=== PATIENT | male | born 1940 | race Caucasian/White ===

== ENCOUNTER 2023-12-21 15:00 | Emergency (ER) | payer OTHER, BC ==
[2023-12-21 15:15] VITALS: BP 131/74; PULSE 66; RESP 18; TEMP 98.2; BMI 23.6
[2023-12-21 15:43] LABS: BASO % 0.9 % (0-2.0); EOS % 3.6 % (0-4.5); HEMATOCRIT 43.7 % (35.4-49); HEMOGLOBIN 14.4 GM/dL (11.7-16.9); LYMPH % 23.3 % (8-40); MCH 30.4 pg (25.7-33.7); MEAN CELL VOLUME 92.3 fl (80-96); MEAN PLT VOLUME 8.2 fl (7.5-11.1); MONO % 8.2 % (3.8-10.2); PLATELET COUNT 168 10^3/uL (134-434); RBC 4.74 M/mm3 (4.00-5.60); RDW 14.2 % (11.9-15.9)
[2023-12-21 15:50] LABS: INR 1.05 (0.83-1.09); PROTHROMBIN TIME (PATIENT) 12.2 SEC (9.7-13.0)
[2023-12-21 15:53] LABS: ACTIVATED PTT 31.5 SECONDS (25.2-36.5)
[2023-12-21 16:05] LABS: POTASSIUM 4.8 mmol/L (3.5-5.1)
[2023-12-21 16:07] LABS: CALCIUM 8.7 mg/dL (8.5-10.1)
[2023-12-21 16:08] LABS: BLOOD UREA NITROGEN 25.3 mg/dL (7-18)
[2023-12-21 16:11] LABS: CREATININE 1.1 mg/dL (0.55-1.3)
[2023-12-21 16:12] LABS: BILIRUBIN,TOTAL 0.6 mg/dL (0.2-1); TOT PROT 6.8 g/dl (6.4-8.2)
[2023-12-21 16:15] LABS: N-TERMINAL BNP 216.9 pg/ml (5-450)
== END 2023-12-21 19:56 | disposition home or self-care (01) ==
LOC: JER 15:00
DX: R07.89 Other chest pain (principal); R06.02 Shortness of breath
CPT/HCPCS: 36415; 71045-TC-FY; 80053; 83880; 84484; 85025; 85610; 85730; 93005; 93010; 99285-25

== ENCOUNTER 2025-03-28 15:14 | Observation (INO) | payer OTHER, BC ==
[2025-03-28] MEDS ORDERED: LISINOPRIL 20 MG TABLET ONE (15:57)
[2025-03-28 16:00] LABS: ABSOLUTE IMMATURE GRANULOCYTES 0.02 x10^3/uL (0.0-0.031); BASOPHILS # 0.07 x10^3/uL (0.01-0.08); EOSINOPHIL % 3.5 % (0.8-7.0); EOSINOPHILS # 0.25 x10^3/uL (0.04-0.54); MCHC 34.0 g/dl (32.3-36.5); MEAN CELL VOLUME 90.0 fl (79.0-92.2); MEAN PLT VOLUME 9.6 fl (9.4-12.4); MONOCYTE # 0.67 x10^3/uL (0.30-0.82); MONOCYTE % 9.3 % (5.3-12.2); RDW 12.9 % (12.6-16.6)
[2025-03-28] MEDS: LISINOPRIL 20 MG TABLET PO ONE (16:00)
[2025-03-28 16:22] LABS: URINE APPEARANCE CLEAR; URINE BILIRUBIN NEGATIVE (NEGATIVE); URINE COLOR YELLOW; URINE GLUCOSE (UA) NEGATIVE (NEGATIVE); URINE KETONE NEGATIVE (NEGATIVE); URINE LEUK ESTERASE NEGATIVE (NEGATIVE); URINE NITRITE NEGATIVE (NEGATIVE); URINE PROTEIN NEGATIVE (NEGATIVE); URINE UROBILINOGEN 0.2 mg/dL (0.2-1.0)
[2025-03-28 16:23] LABS: CO2 26.0 mmol/L (21-32); GLUCOSE,RANDOM 110.0 mg/dL (74-106)
[2025-03-28 16:26] LABS: CREATININE 0.8 mg/dL (0.55-1.3); SGOT/AST 27.0 U/L (15-37); SGPT/ALT 32.0 U/L (13-61)
[2025-03-28 16:28] LABS: TOT PROT 7.4 g/dl (6.4-8.2)
[2025-03-28 16:29] LABS: ALK PHOS 72.0 U/L (45-117)
[2025-03-28 16:51] LABS: CO2 28.0 mmol/L (21-32); GLUCOSE,RANDOM 112.0 mg/dL (74-106)
[2025-03-28 16:54] LABS: SGOT/AST 28.0 U/L (15-37); SGPT/ALT 32.0 U/L (13-61)
[2025-03-28 16:55] LABS: CREATININE 0.8 mg/dL (0.55-1.3)
[2025-03-28 16:56] LABS: TOT PROT 7.3 g/dl (6.4-8.2)
[2025-03-28 16:57] LABS: ALK PHOS 71.0 U/L (45-117)
[2025-03-28 17:23] LABS: HCV DIAGNOSTIC IN-HOUSE W/RFLX NON-REACTIVE (NONREACTIVE)
[2025-03-28 17:25] LABS: HIV INTERPRETATION NEGATIVE (NEGATIVE)
[2025-03-28 18:04] LABS: N-TERMINAL BNP 589.0 pg/ml (5-450)
[2025-03-28] MEDS ORDERED: HYDROCHLOROTHIAZIDE 12.5 MG CAPSULE (FP) PO ONE (18:14)
[2025-03-28] MEDS ORDERED: HYDROCHLOROTHIAZIDE 25 MG TABLET (FP) ONE (18:35)
[2025-03-28] MEDS: HYDROCHLOROTHIAZIDE 25 MG TABLET (FP) PO ONE (18:42)
[2025-03-28] MEDS ORDERED: CARVEDILOL 6.25 MG TABLET (FP) ONE (18:44)
[2025-03-28] MEDS: CARVEDILOL 6.25 MG TABLET (FP) PO ONE (18:45)
[2025-03-28] MEDS ORDERED: CARVEDILOL 6.25 MG TABLET (FP) PO SCH (20:00)
[2025-03-28 21:03] VITALS: BMI 26.6
[2025-03-28] MEDS: GABAPENTIN 300 MG CAPSULE PO SCH (21:32)
[2025-03-28 22:00] LABS: LDL CHOLESTEROL (ONLY SJRH) 135.0 mg/dL (5-100)
[2025-03-29 07:22] LABS: MCHC 33.5 g/dl (32.3-36.5); MEAN CELL VOLUME 90.3 fl (79.0-92.2); MEAN PLT VOLUME 9.8 fl (9.4-12.4); RDW 13.1 % (12.6-16.6)
[2025-03-29 07:50] LABS: SGPT/ALT 25.0 U/L (13-61)
[2025-03-29 07:51] LABS: GLUCOSE,RANDOM 93.0 mg/dL (74-106); SGOT/AST 21.0 U/L (15-37)
[2025-03-29 07:52] LABS: CO2 28.0 mmol/L (21-32); TOT PROT 6.4 g/dl (6.4-8.2)
[2025-03-29 07:53] LABS: ALK PHOS 61.0 U/L (45-117)
[2025-03-29 07:54] LABS: CREATININE 0.8 mg/dL (0.55-1.3)
[2025-03-29 09:22] VITALS: RESP 18
[2025-03-29] MEDS: TAMSULOSIN HCL 0.4 MG CAP PO SCH (09:26)
[2025-03-29] MEDS: CARVEDILOL 6.25 MG TABLET (FP) PO SCH (09:56)
[2025-03-29] MEDS: LISINOPRIL 10 MG TABLET PO SCH (09:56)
[2025-03-29] MEDS ORDERED: CARVEDILOL 12.5 MG TABLET (FP) PO SCH (10:00)
[2025-03-29] MEDS ORDERED: HYDROCHLOROTHIAZIDE 12.5 MG CAPSULE (FP) PO SCH (10:00)
[2025-03-29 13:04] LABS: LDL CHOLESTEROL (ONLY SJRH) 125.0 mg/dL (5-100)
[2025-03-29] MEDS: LISINOPRIL 10 MG TABLET PO ONE (15:49)
[2025-03-29 16:02] VITALS: BP 143/75; PULSE 73; TEMP 97.2
== END 2025-03-29 18:21 | disposition home or self-care (01) ==
LOC: JER 15:14 → JERBED 17:03 → J4W 20:34
PROVIDERS: ADMIT Internal Medicine; ATTEND Internal Medicine
PROC: 3E033GC Introduction of Other Therapeutic Substance into Peripheral Vein, Percutaneous Approach (ICD-10-PCS; principal; 2025-03-28)
DX: I16.0 Hypertensive urgency (principal); I50.32 Chronic diastolic (congestive) heart failure; E78.5 Hyperlipidemia, unspecified; N40.0 Benign prostatic hyperplasia without lower urinary tract symptoms
CPT/HCPCS: 36415; 71045-TC-FY; 80053; 80061; 81003; 83036; 83735; 83880; 84100; 84443; 84484; 85025; 85027; 86803; 87389; 93005; 93010; 93306-TC; 96374; 97116-GP; 97161-GP; 99285-25; G0378